=== PATIENT | female | born 1935 | race Caucasian/White ===

== ENCOUNTER 2023-12-10 09:13 | Emergency (ER) | payer MEDICARE, SELFPAY ==
[2023-12-10 09:59] VITALS: BP 123/79; PULSE 91; RESP 18; TEMP 36.2; O2SAT 96
--- NOTE | 2023-12-10 10:15 | ED.GENADULT ---
HPI - General Adult General Chief complaint: Urogenital-Female Stated complaint: uti symptoms,wheezing Time Seen by Provider: 12/10/23 10:15 Source: patient Mode of arrival: ambulatory Limitations: no limitations History of Present Illness HPI narrative: 88 y/o female with hx dementia and chf reports increased confusion from baseline and generalized weakness for about one week. Endorses unwitnessed fall at home 6 days ago, dtr in law was home and reports no LOC, but unsure if she struck her head. States she walked outside to bring packages inside when she lost balance and fell. Pt also reports increased cough, urinary frequency last night, bloating to abd which is where she reports her chf swelling. Pt reported to dtr in law she just doesn't feel right. Endorses normal po intake, denies n/v/d/f/c. 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 Remote hx nephrectomy. Related Data Home Medications Medication Instructions Recorded Confirmed allopurinol 100 mg tablet 100 mg PO DAILY 12/10/23 12/10/23 atorvastatin 20 mg tablet 20 mg PO DAILY 12/10/23 12/10/23 furosemide 20 mg tablet 20 mg PO DAILY 12/10/23 12/10/23 losartan 25 mg tablet 25 mg PO DAILY 12/10/23 12/10/23 metoprolol succinate 100 mg 200 mg PO DAILY 12/10/23 12/10/23 tablet,extended release 24 hr nifedipine 30 mg tablet,extended 30 mg PO DAILY 12/10/23 12/10/23 release 24 hr pantoprazole 40 mg tablet,delayed 40 mg PO DAILY 12/10/23 12/10/23 release quetiapine 100 mg tablet 150 mg PO HS 12/10/23 12/10/23 quetiapine 25 mg tablet 50 mg PO DAILY 12/10/23 12/10/23 Allergies Allergy/AdvReac Type Severity Reaction Status Date / Time Cephalosporins AdvReac Intermediate Gastrointestinal Verified 12/10/23 10:27 Upset Review of Systems Review of Systems: per HPI, obtained from [facility] All systems reviewed & are unremarkable except as noted in HPI and below PMFSH Past Medical History Medical History (Updated 12/10/23 @ 10:50 by Tory Key, LAURA) CHF (congestive heart failure) Dementia Gout High cholesterol HTN (hypertension) Surgical History Surgical History (Updated 12/10/23 @ 10:46 by Tory Key APRN) History of nephrectomy Comments At time of signature, I have reviewed and agree with nursing past medical, surgical, social and family history unless otherwise noted. Please see nursing chart for further information. There is no relevant family history pertinent to the presenting complaint Exam Narrative: GENERAL: mildly ill appearing, in no acute distress. HEAD: Normocephalic, atraumatic. EYES: EOMI. No redness or drainage. Conjunctivae normal. ENT: Mucous membranes pink and moist. NECK: Normal AROM. No VPT. No lymphadenopathy. CHEST: No respiratory distress. Clear to auscultation. HEART: Regular rate and rhythm. No murmur appreciated. Normal peripheral pulses. ABDOMEN: Soft, nontender, mildly distended, normal active bowel sounds. MUSCULOSKELETAL: No bony tenderness. EXTREMITIES: Normal range of motion. No edema. SKIN: Pale. Warm, dry, no rash. Capillary refill normal. Poor skin turgor. NEURO: No focal deficits. Alert and oriented x1, cooperative. Gait steady. PSYCH: Flat affect. Course Course Emergency Course: Patient is aware of diagnosis, understands and agrees to treatment plan. Anticipatory guidance given. Patient agrees to follow-up as directed and is aware of reasons to seek care at the emergency department. Portions of this record may have been created with voice recognition software Level of Care: Express Care Visit Vital Signs Vital signs: Vital Signs Temperature 97.2 F L 12/10/23 09:59 Pulse Rate 91 12/10/23 09:59 Respiratory Rate 18 12/10/23 09:59 Blood Pressure 123/79 12/10/23 09:59 Pulse Oximetry 96 12/10/23 09:59 Oxygen Delivery Room Air 12/10/23 09:59 Temperature 97.2 F L 12/10/23 09:59 Pulse Rate 91 12/10/23 09:59 Respiratory Rate 12/10
== END 2023-12-10 10:40 | disposition short-term general hospital (02) ==
PROVIDERS: Emergency Provider Nurse Practitioner Family
DX: R53.1 Weakness (principal); I11.0 Hypertensive heart disease with heart failure; I50.9 Heart failure, unspecified; F03.90 Unspecified dementia, unspecified severity, without behavioral disturbance, psychotic disturbance, mood disturbance, and anxiety; M10.9 Gout, unspecified; E78.00 Pure hypercholesterolemia, unspecified; Z90.5 Acquired absence of kidney
CPT/HCPCS: 81003; 87086; 99213; G0463